=== PATIENT | female | born 1965 | race Caucasian/White ===

== ENCOUNTER 2016-09-10 22:22 | Emergency (ER) | payer MEDICARE, MEDICAID ==
[2016-09-10 22:31] VITALS: BP 138/87
[2016-09-10] MEDS ORDERED: DEXAMETHASONE 10 MG/ML VIAL PO STA (23:09)
[2016-09-10] MEDS ORDERED: CHERRY SYRUP 10 ML UDC PO ONE (23:10)
[2016-09-10] MEDS ORDERED: DEXAMETHASONE 10 MG/ML VIAL ONE (23:10)
--- NOTE | 2016-09-11 00:12 | XRAY Preliminary Report ---
Exam: XR Elbow 3 View LT IMPRESSION: No acute osseous abnormality demonstrated. [facility] SITE ID: [id number]
--- NOTE | 2016-09-11 00:14 | XRAY Report ---
EXAM: LEFT ELBOW RADIOGRAPHY EXAM DATE: 09/10/2016 11:46 PM. CLINICAL HISTORY: Fall, elbow pain, old elbow fracture COMPARISON: None. TECHNIQUE: 3 views. FINDINGS: Bones: Normal mineralization. No fractures or bone lesions. Joints: No subluxations. There is degenerative change of the radiocapitellar joint. Mild ulnar trochl ear degenerative change as well. Soft Tissues: No soft tissue swelling. IMPRESSION: No acute osseous abnormality demonstrated. [facility] Referring Provider Line: [phone] SITE ID: [id number]
--- NOTE | 2016-09-11 00:15 | ED Physician Documentation ---
PD HPI UPPER EXT INJURY - Stated complaint Stated Complaint: LT UE NUMBNESS X 5 DAYS - Chief complaint Chief Complaint: Ext Problem - History obtained from History obtained from: Patient - History of Present Illness Location: Left, Elbow Type of injury: Fall Where injury occurred: Home Timing - onset: How many days ago (5) Timing - details: Abrupt onset Improved by: Rest, Immobilization Worsened by: Moving, Palpating Associated symptoms: Numbness, Tingling, Swelling Contributing factors: No: Anticoagulated Similar symptoms before: Work up / diagnostics, Treatment Recently seen: Not recently seen - Additonal information Additional information: Patient is a 51 year old female with a history of spinal stenosis and arthritis who is presenting to the emergency department for elbow pain, and numbness. patient states that she broke her elbow a few years back and that she has had spinal stenosis for a long while. patient states that five days ago she slipped and landed on her elbow. Since that time patient has had intermittent numbness and tingling in her left hand. Review of Systems Constitutional: denies: Fever, Chills Eyes: denies: Decreased vision, Photophobia Ears: denies: Loss of hearing, Ear pain Nose: denies: Rhinorrhea / runny nose, Congestion Throat: denies: Dental pain / toothache, Oral lesions / sores, Sore throat Cardiac: denies: Chest pain / pressure GI: denies: Nausea, Vomiting : denies: Dysuria, Frequency Musculoskeletal: reports: Neck pain, Extremity pain, Extremity swelling Neurologic: reports: Numbness. 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, Tubal ligation, Other - Present Medications Home Medications: Ambulatory Orders Medication Instructions Recorded Confirmed Prednisone 40 mg PO DAILY 5 Days 09/11/16 - Allergies Allergies/Adverse Reactions: Allergies Allergy/AdvReac Type Severity Reaction Status Date / Time acetaminophen [From Vicodin] Allergy Hives Verified 09/10/16 22:31 hydrocodone bitartrate * Allergy Hives Verified 09/10/16 22:31 [From Vicodin] ibuprofen Allergy "my Verified 09/10/16 22:31 stomach" lorazepam Allergy "I " Verified 09/10/16 22:31 morphine Allergy vomiting Verified 09/10/16 22:31 propoxyphene napsylate * Allergy vomiting Verified 09/10/16 22:31 [From [facility]] - Social History Does the pt smoke?: Yes Smoking Status: Current every day smoker Does the pt drink ETOH?: No Does the pt have substance abuse?: Yes Substance Use and Type: Marijuana - Immunizations Immunizations are current?: Yes - POLST Patient has POLST: No PD ED PE NORMAL - Vitals Vital signs reviewed: Yes - General General: Alert and oriented X 3, No acute distress, Well developed/nourished - HEENT HEENT: Atraumatic, PERRL, Pharynx benign - Neck Neck: Supple, no meningeal sign - Cardiac Cardiac: RRR, No murmur - Respiratory Respiratory: No respiratory distress - Abdomen Abdomen: Soft, Non distended - Derm Derm: Normal color, Warm and dry - Neuro Neuro: Alert and oriented X 3, No motor deficit, Normal speech - Psych Psych: Normal mood, Normal affect PD ED PE EXPANDED - Extremities Extremities: Left elbow (tenderness to palpation of left elbow, mild swelling) Results - Vitals Vitals: Vital Signs - 24 hr 09/10/16 22:27 Temperature 36.2 C L Heart Rate 94 Respiratory 16 Rate Blood Pressure 138/87 H O2 Saturation 97 Oxygen O2 Source Room air - Rads (name of study) elbow x-ray Radiology: Final report received ( no acute fracture or dislocation) PD MEDICAL DECISION MAKING - ED course Complexity details: reviewed old records, reviewed results, re-evaluated patient , considered differential, d/w patient ED course: Patient was seen and examined at bedside. paient was sent for imaging. when patient returned the results were reviewed. there was no acute fracture or dislocation. patient was placed in wrist splint for comfort and treated with decadron. and patient was stable for discharge with outpatient follow up. 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 there were no major abnormalities on your x-rays. You should follow up with your pmd for further evaluation and care. Discharge Date/Time: 09/11/16 00:28
== END 2016-09-11 00:28 | disposition home or self-care (01) ==
LOC: ED 22:22
DX: G61.9 Inflammatory polyneuropathy, unspecified (principal); M25.522 Pain in left elbow; M48.00 Spinal stenosis, site unspecified; M19.90 Unspecified osteoarthritis, unspecified site; F17.200 Nicotine dependence, unspecified, uncomplicated
CPT/HCPCS: 73080; 99283; A9270